=== PATIENT | male | born 1970 | race American Indian/Alaskan Native ===

== ENCOUNTER 2016-12-06 12:34 | Outpatient (CLI) | payer OTHER ==
--- NOTE | 2016-12-06 22:03 | Vascular Lab Report ---
LEFT UPPER EXTREMITY VENOUS DUPLEX: REASON FOR EXAM: Left arm pain COMMENTS ON THE LEFT: All arm veins visualized are freely compressible without evidence of internal echogenicity. The subclavian and internal jugular veins are free of thrombus. Flow is spontaneous and phasic throughout. COMMENTS ON THE RIGHT: The subclavian and internal jugular veins are free of thrombus. IMPRESSION: No evidence of acute or chronic deep venous thrombosis in the left upper extremity.
== END 2016-12-06 12:35 | disposition home or self-care (01) ==
LOC: VAS 12:34
PROVIDERS: ATTEND Internal Medicine
DX: M79.602 Pain in left arm (principal)